=== PATIENT | female | born 1940 | race Caucasian/White ===

== ENCOUNTER → 2021-06-21 10:16 | Outpatient (CLI) | payer OTHER, SELFPAY ==
--- NOTE | 2021-06-21 10:20 | DI.RAD.S_ITS ---
PROCEDURE: XR HIP W PEL IF DONE JIE MIN 4V INDICATIONS: BILATERAL HIP PAIN TECHNIQUE: AP pelvis with lateral view(s) of the bilateral hip(s). COMPARISON: None. FINDINGS: Bones: No fractures or dislocations. Pelvic ring appears intact. No suspicious bony lesions. Moderate bilateral degenerative hip joint space narrowing is present. Periarticular osteophytes are present. No erosions. Soft tissues: The visualized bowel gas pattern is normal. No suspicious soft tissue calcifications. IMPRESSION: Osteoarthritis within the hips bilaterally. Dictated by: Jessica Gutierrez M.D. on 06/21/2021 at 17:26 Approved by: Jessica Gutierrez M.D. on 06/21/2021 at 17:27
== END ==
PROVIDERS: PCP Internal Medicine; Referring Provider Physical Medicine & Rehabilitation; Visit Provider Physical Medicine & Rehabilitation
DX: M25.551 Pain in right hip (principal); M25.552 Pain in left hip; M16.0 Bilateral primary osteoarthritis of hip
CPT/HCPCS: 73522

== ENCOUNTER 2022-12-26 11:39 | Inpatient (IN) | payer OTHER, SELFPAY ==
[2022-12-18 12:30] VITALS: BMI 30.8
[2022-12-26] VITALS (13 sets, daily range): BP systolic 133–190; BP diastolic 75–97; PULSE 72–84; RESP 12–93; TEMP 35.9–37.1; O2SAT 12–99; BMI 30.8
--- NOTE | 2022-12-26 | DI.RAD.S_ITS ---
PROCEDURE: XR LUMBAR SPINE 2-3V INDICATIONS: L4-5 TLIF TECHNIQUE: 2 intraoperative fluoroscopic views of the lumbar spine were acquired. COMPARISON: None. FINDINGS: Intraoperative fluoroscopic views during L4-5 posterior lumbar fusion and discectomy. The hardware appears intact. IMPRESSION: Intraoperative fluoroscopic views during L4-L5 TLIF. The hardware appears intact. Dictated by: Jesus Vanegas M.D. on 12/27/2022 at 8:39 Approved by: Jesus Vanegas M.D. on 12/27/2022 at 8:40
[2022-12-26] MEDS: LACTATED RINGERS 1,000 ML 42 ML IV ×2 (12:33→15:26)
[2022-12-26] MEDS: ACETAMINOPHEN 325 MG TABLET 975 MG PO (12:35)
[2022-12-26] MEDS: GABAPENTIN 300 MG CAPSULE PO (12:35)
--- NOTE | 2022-12-26 13:45 | PM.PREOP ---
Pre-operative Note Interval Note History & Physical reviewed/Exam performed by Physician: Yes Changes to H&P: No
[2022-12-26] MEDS: CEFAZOLIN 2 GM/100 ML PREMIX 100 ML IV ×2 (14:25→21:23)
--- NOTE | 2022-12-26 14:51 | SUR.OPER ---
Prone on spine table, head in foam head support, padded chest and pelvic supports, gel pad at knees, lower legs supported by pillows; nipples, genitalia and toes free of pressure, arms secured on foam padded arm boards at <90 degrees abduction. Tape over blanket at thigh secured to table.
[2022-12-26] MEDS: BUPIVACAINE LIPOSOME 266 MG/20 ML VIAL INJ (15:22)
[2022-12-26] MEDS: BUPIVACAINE 0.25% (PF) 60 ML, EPINEPHrine 0.15 MG INJ (15:22)
--- NOTE | 2022-12-26 16:53 | P.OP_ITS ---
Operative Date/Time/Diagnoses Date of procedure: 12/26/22 Time of procedure: 14:00 Pre-op diagnosis: 1. L4-5 spinal stenosis with neurogenic claudication 2. Lumbar scoliosis Post-op diagnosis: same Procedure & Clinicians Procedure: 1. L4-5 Postero-lateral and posterior interbody fusion 2. L4-5 interbody cage placement. 3. L4-5 decompressive laminectomy with bilateral facetecomies 4. L4-5 Posterior non-segmental instrumentation 5. [place] of bone marrow from iliac crest 6. Utilization of microsurgical technique and operating microscope Same procedure as scheduled: Yes Indications: Patient has been having chronic back pain and worsening lumbar radiculopathy and symptoms of neurogenic claudication. Patient failed multiple conservative management with worsening pain weakness and numbness in her lower extremity. She has difficulty standing for more than 5 minutes or walking more than 10 minutes. She will have progressive pain and w eakness in both legs as she walks and stands for a few minutes. Her symptoms are relieved with forward flexion and leaning on a shopping cart consistent with spinal stenosis and neurogenic claudication. Patient has been having difficulty performing activity of daily living. After discussing risks benefits of treatment options, patient elected proceed with surgery. Surgeon: Salazar Robertson Finisher Merchant Products: Lin Driver Click Yes if Unassisted: No Anesthesia Type: General Operative Notes Closure Type: primary Specimen(s): none sent Prosthetic devices, grafts, tissues, transplants, or devices: Globus revolve screws, Rise cage Estimated Blood Loss (mL): 50 Blood products transfused: none Procedure in detail: Patient was seen in the preoperative area. Risks and benefits of the surgery was discussed with the patient. Informed consent was obtained from the patient and placed in the chart. Surgical site was marked. Patient was taken to the operative room. General anesthesia was administered. Prophylactic antibiotic was given to the patient less than 30 min before the incision was made. Patient was placed into a prone position on the Lizandro table. Patient's back was then prepped and draped in the sterile fashion. Time-out was performed at this time. Using AP and lateral C-arm imaging the interval between L4-5 was identified and marked on patient's back. A 2 inch incision 2 in from midline was made on the left side first. The fascia was incised in line with skin incision. Globus MARS retractors was placed inside the incision and docked onto the L4 lamina. Using microsurgical technique and operating microscope, a L4 laminectomy and L4-5 facetectomy was performed using a [place] rongeur. The laminectomy and facetectomy was performed in order to decompress patient's cauda equina as well as the nerve roots exiting at the L4-5 level. The disc space at L4-5 was identified. And a total diskectomy was performed at L4-5 level. The endplates were decorticated using a rasp and shaver. The total diskectomy and decortication was performed at L4-5 level in order to to accomplish a L4-5 fusion. The local bone from the laminectomy and facetectomy was saved for local bone grafting. After the total diskectomy and decortication was completed, DBM bone graft material was combined with local bone that was harvested earlier. At this time, a separate skin is incision was made over the iliac crest. A Jamshidi needle was inserted into the iliac crest through a separate skin inc ision. 5 cc of bone marrow aspiration was obtained through the separate skin incision using a Jamshidi needle from the iliac crest. The bone marrow aspiration was combined with local bone and the DBM bone grafting material. The bone grafting material was placed into the L4-5 interbody space along with a expandable cage. The cage was expanded to its maximum height using the torque limiting screwdriver. At this time a mirror image incision was made on the right side. The fascia was incised in line with the skin incision. Globus MARS retractor was inserted and docked onto the L4-5 posterolateral gutter. Using the power drill, posterior- lateral decortication was performed at L4-5 level until bleeding cortical bone was identified. The remaining bone grafting material was placed into the L4-5 posterior lateral gutter he order to accomplish posterolateral fusion at the L4- 5 level. Using the double C-arm technique, pedicle screws were placed into the L4-5 pedicles bilaterally. This was done by placing the Jamshidi needle into the pedicles, then placing the guidewires over the Jamshidi needle, and finally placing the cannulated screws over the guidewires bilaterally. After the pedicle screws were placed, 2 titanium rods was locked into the heads of the pedicle screws using locking caps and torque limiting screwdriver. After all the hardware was placed, and confirmed with AP and lateral C-arm imaging, the wound was then irrigated with sterile normal saline and packed with Ray-Steevn gauze for 3 min to accomplish hemostasis. After the gauze was removed the deep fascia was closed with #1 Vicryl suture. The subcutaneous layer was closed with 2-0 Vicryl. The skin was closed with skin tre. Patient tolerated the procedure well. There were no complications. The Operation could not have been safely performed without compromising the technical result or length of the procedure, without the assistance of a skilled office clerk assistant. The office clerk assistant was medically necessary for proper positioning, retraction and manipulation of instruments, proper exposure, surgical preparation, and manipulation of tissue. Complications: none Post-operative Condition: stable Disposition: PACU Plan for aftercare: Admit to inpatient hospital
--- NOTE | 2022-12-26 17:34 | SUR.PHASEI ---
Pt transferred to room 220 by Rhett KUHN with 1 belongings bag and front wheeled walker.
--- NOTE | 2022-12-26 17:51 | PC.NURSE ---
Addendum entered by Oren Lovell R.N. 12/26/22 18:02: Reports back pain 0/10 at this time. Original Note: Day shift: In room from PACU at approx 1740. A&Ox4. BP elevated 189/90. Will continue to monitor BP. RA 96%. Purwik in place. CMS in tact and PPP. Oriented to room and call light. Daughter in room for post-op support . Daughter states that she will not be able to care for Pt at home as she has 3 young children. Call light in reach. Lungs clear. HR regular. BT's hypoactive.
[2022-12-26] MEDS: LACTATED RINGERS 1,000 ML 125 ML IV (17:59)
[2022-12-26] MEDS: OXYCODONE IR 5 MG TABLET PO (19:47)
[2022-12-26] MEDS: lisinopriL 20 MG TABLET PO (20:04)
[2022-12-26] MEDS: DOCUSATE 100 MG CAPSULE PO (20:05)
[2022-12-26] MEDS: VIT C/E/ZN/COPPR/LUTEIN/ZEAXAN CAPSULE 1 CAP PO (20:05)
[2022-12-26] MEDS: ATORVASTATIN 20 MG TABLET PO (20:05)
[2022-12-26] MEDS: SENNOSIDES 8.6 MG TABLET 17.2 MG PO (20:05)
[2022-12-26] MEDS: OXYBUTYNIN 5 MG TABLET PO (20:21)
[2022-12-27] VITALS: BP 147/55; PULSE 69; RESP 17; TEMP 36.2; O2SAT 93
[2022-12-27] MEDS: LACTATED RINGERS 1,000 ML 125 ML IV (01:59)
[2022-12-27 04:00] VITALS: BP 169/82; PULSE 65; RESP 17; TEMP 36.1; O2SAT 94
[2022-12-27] MEDS: CEFAZOLIN 2 GM/100 ML PREMIX 100 ML IV (06:05)
[2022-12-27] MEDS: ACETAMINOPHEN 325 MG TABLET 650 MG PO ×2 (06:29→14:39)
--- NOTE | 2022-12-27 07:47 | PM.PNPO.1 ---
Subjective Subjective Date Patient Seen: 12/27/22 Time Patient Seen: 07:47 Interval history: pain is mild. Denies fever or chills. No nausea or vomiting. Patient does live alone. Exam Vital Signs (past 8 hours): - 12/27/22 00:00 12/27/22 04:00 Temperature 97.2 F L 97.0 F L Pulse Rate 69 65 Respiratory Rate 17 17 Blood Pressure 147/55 H 169/82 H Pulse Oximetry 93 94 Oxygen Flow Rate 0 0 Oxygen Delivery Method Room Air Oxygen Flow Rate 0 Narrative Exam Narrative: 82-year-old female resting comfortably in bed no apparent distress. Motor functions intact bilateral lower extremities. Sensation grossly intact to light touch bilateral lower extremities. Const General: cooperative and comfortable Nutritional Appearance: average body habitus Chest Chest: normal inspection of the chest and normal palpation of entire chest wall PFSH Medical History Anxiety Lumbar radiculopathy Spinal stenosis Diverticulosis HLD (hyperlipidemia) HTN (hypertension) Gait instability History of CVA (cerebrovascular accident) (~2014) Degenerative joint disease of both hips Surgical History Hx of bilateral cataract extraction History of left-sided carotid endarterectomy (~2014) Hx of appendectomy History of hernia surgery Family History Mother Heart disease Past heart attack Social History household members: none Smoking Status: Never smoker alcohol intake: never Assessment & Plan Post-op Postoperative Procedures: Procedures Operation Date: 12/26/22 13:15 Actual Procedure Side Surgeon p L4-5 TLIF Salazar Robertson MD Postoperative day: 1 Postoperative status: doing well Postoperative status narrative: Stable status post L4-L5 fusion Postoperative plan: routine post-op care Postoperative plan narrative: mobilize with physical therapy, limit bending, twisting, lifting multimodal pain management disposition, home versus residential facility to be determined Quality VTE Deep Vein Thrombosis/Pulmonary Embolism Present on Admission: No
[2022-12-27 08:00] VITALS: BP 181/96; PULSE 71; RESP 16; TEMP 36.3; O2SAT 99
[2022-12-27] MEDS: OXYBUTYNIN 5 MG TABLET 10 MG PO (09:10)
[2022-12-27] MEDS: FENOFIBRATE, MICRONIZED 67 MG CAPSULE 134 MG PO (09:10)
[2022-12-27] MEDS: DOCUSATE 100 MG CAPSULE PO ×2 (09:10→20:28)
[2022-12-27] MEDS: OXYCODONE IR 5 MG TABLET PO ×3 (10:49→20:28)
--- NOTE | 2022-12-27 11:03 | PT.IIE ---
Current Diagnoses Spinal stenosis, lumbar region with neurogenic claudication (12/26/22) Surgery Performed Operation Date: 12/26/22 13:15 Actual Procedures p L4-5 TLIF - Salazar Robertson MD Surgical History (Last Reviewed 12/27/22 @ 07:48 by Filipe Burgos PA-C) History of hernia surgery History of left-sided carotid endarterectomy (~2014) Hx of appendectomy Hx of bilateral cataract extraction Medical History (Last Reviewed 12/27/22 @ 07:48 by Filipe Burgos PA-C) Anxiety Degenerative joint disease of both hips Diverticulosis Gait instability History of CVA (cerebrovascular accident) (~2014) HLD (hyperlipidemia) HTN (hypertension) Lumbar radiculopathy Spinal stenosis Physical Therapy Inpatient Evaluation/Re-Eval M1 PT/OT-IP Prior Functional Status Start: 12/27/22 11:44 Freq: NEEDED Status: Active Protocol: Document 12/27/22 11:44 AB (Rec: 12/27/22 12:40 AB [id number]) Medical Review Prior Functional Status Medical History Reviewed Yes Diet/Fluid Consistency Regular Communication Pt is able to express all needs. Mobility and Gait Pt reports she uses 4WW when ambulating for household and community distances. Activities of Daily Living and IADL's Pt is IND with ADLs and IADLs. Social History Household Members none Living Arrangements Apartment/Condo Number of Floors (Floors) One Floor Number of Stairs To Enter/Railing? ramp to enter Home Environment High Toilet,Tub/Shower,Ramp Home Equipment Four Wheel Walker,Long Handled Shoe Horn,Crane Ladle Person,Grab Bars Near Toilet,Grab Bars In Shower Additional Social History Comment Pt lives alone and does not have anyone who can assist her ; her daughter lives 45 min away. M2 PT-IP Current Condition Start: 12/27/22 11:44 Freq: NEEDED Status: Active Protocol: Document 12/27/22 11:44 AB (Rec: 12/27/22 12:40 AB [id number]) Physical Therapy Current Condition Current Condition Evaluation Date 12/27/22 Treatment Diagnosis s/p lumbar TLIF L4-L5 Onset Date 12/26/22 M3 PT-IP Subjective Start: 12/27/22 11:44 Freq: NEEDED Status: Active Protocol: Document 12/27/22 11:44 AB (Rec: 12/27/22 12:40 AB [id number]) Subjective Physical Therapy Visit Type Type Initial Evaluation Visit Start Time 10:11 Visit Stop Time 11:03 Total Visit Minutes 52 Notes PT and OT eval performed concurrently. Physical Therapy Visit Comments Patient Comments Pt presents semi supine in bed with daughter present, and is agreeable to eval. Therapy Pain Assessment Pain When Pain Assessed At Rest Pain Present Pain Present Pain Reported Location low back Intensity 2 Pain Management Techniques Distraction,Timing of Activity with Medications M4 PT-IP Mobility and Gait Start: 12/27/22 11:44 Freq: NEEDED Status: Active Protocol: Document 12/27/22 11:44 AB (Rec: 12/27/22 12:40 AB [id number]) PT-Bed Mobility Assessment Rolling Type of Rolling Log Rolling Level of Assist Standby Assistance Supine to Sit Supine to Sit Standby Assistance,Bedrails Sit to Supine Sit to Supine Standby Assistance,Bedrails Scooting Scooting to Edge of Bed Standby Assistance PT-Transfer Assessment Sit to and From Stand Sit to and from Stand Standby Assistance,Use of Upper Extremities Equipment Transfer Assistive Device Gait Belt,Front Wheeled Walker Transfers Transfer Destination Bed,Chair,Toilet Transfer Technique ambulated Transfer Ability Level of Assist Standby Assistance,Use of Upper Extremities Comments Mobility Comments After introduction, education and subjective history, the pt was positioned supine in bed to perform log roll. She was able to perform log roll with SBA, requiring cues for proper hand placement, though the pt opted to use bed rail to push up to sitting despite PT cues to push from bed. Once seated , the pt is able to scoot forward with SBA using UEs. The pt then performed STS with UEs, FWW and SBA, with PT educating on pushing up from bed rather than on FWW. The pt 's BP with mobility remained stable at 172/77, 176/87 and 179/93, though is high, in supine sitting and standing respectively. Once standing, the pt ambulated ~15ft in room with FWW and SBA, then transfers to toilet to void with assist from OT. Once hand hyigene is performed, the pt ambulated 200ft with FWW and SBA/CGA. She demonstrates narrow JEFF and poor compliance with precautions, as she turns to talk to PT, and has poor carryover to widen JEFF when ambulating. The pt also shows heavy use of UEs on FWW for stability, stating she doesn't trust her LLE due to weakness. Upon returning to room, the pt performs log roll to return to supine with SBA and use of bed rails. Then performs log roll to sit at EOB, and transfers to chair with FWW and SBA to continue with OT eval. Pt is left with OT to continue OT eval. Gait Assessment Gait Gait Assistance Required: Standby Assistance,Contact Guard Assist Distance (Feet) 200 Assistive Devices Assistive Device Gait Belt,Front Wheeled Walker Gait Deviations General Gait Pattern Decreased Stride Length, Decreased Feet Clearance, Narrow Based Gait Factors Limiting Gait Function Factors Limiting Gait Function Decreased Activity Tolerance, Decreased Sensation,Decreased Strength,Difficulty Following Directions,Limited Range of Motion,Pain,Poor Balance,Poor Safety Awareness Comments Gait Comments See mobility comments. Stair Climbing Assessment Comments Stair Climbing Comments Not assessed; pt does not have stairs at home. PT-Balance Assessment Sitting Balance and Reactions Static Sitting Balance Ability Good Dynamic Sitting Balance Ability Good Standing Balance and Reactions Static Standing Balance Ability Good Dynamic Standing Balance Ability Fair Device Used FWW M5 PT-IP Objective Assessments Start: 12/27/22 11:44 Freq: NEEDED Status: Active Protocol: Document 12/27/22 11:44 AB (Rec: 12/27/22 12:40 AB [id number]) Orientation Orientation/Cognition Level of Alertness Alert Orientation Name,Age,Birthday,Month,Date, Year,Day of Week,Place, Situation Language Function Ability No Deficits Noted Safety Awareness Decreased Safety Awareness Comments Possible short term deficits noted, as she has poor recall of education. Gross Range of Motion Upper Extremity ROM Assessment Within Functional Limits Lower Extremity ROM Assessment Within Functional Limits Strength Upper Extremity Strength Assessment Within Functional Limits Lower Extremity Strength Assessment Within Functional Limits M6 PT-IP Treatment Start: 12/27/22 11:44 Freq: NEEDED Status: Active Protocol: Document 12/27/22 11:44 AB (Rec: 12/27/22 12:40 AB [id number]) Physical Therapy Treatment Education Education Provided Precautions,Weight Bearing Status,Post-Op Packet,Safety Brace Education Patient M7 PT-IP Assessment and Plan Start: 12/27/22 11:44 Freq: NEEDED Status: Active Protocol: Document 12/27/22 11:44 AB (Rec: 12/27/22 12:40 AB [id number]) PT Summary Assessment and Plan Potential Rehabilitation Potential Good Status of Condition at Evaluation Stable Summary Impairments Pain,ROM,Strength,Balance, Cognition,Bed Mobility, Transfers,Gait,Activity Tolerance Assessment Summary Kelli Reynolds is an 82 year old female patient who is s/p lumbar TLIF L4-L5 performed on 12/26/22. The pt demonstrates she is able to perform functional mobility with SBA, including log roll/bed mobility (with bed rails), STS , transfers and ambulation. However, the pt requires constant cueing for safety and sequencing throughout, as she demonstrates poor recall and has to be redirected to the task at hand. The pt ambulates with heavy use of UEs on FWW and narrow JEFF, which can increase her risk for falls. Based on her current level of function but safety concerns, PT currently recommends discharge to SNF to improve her level of function and decrease her fall risk, as the pt does not have assistance at home to assist her and to ensure the pt is safe. Discharge disposition is subject to change based on progress. The pt would benefit from skilled PT to improve these deficits. Goals Bed Mobility Goal Independent Transfer Goal Independent,Front Wheeled Walker,Four Wheeled Walker Gait Goal Independent,Front Wheel Walker ,Four Wheel Walker Gait Distance 500 Other Goals Pt to ambulate 500ft independently with LRAD to show improving tolerance to activity. Pt to recall and maintain 3/3 spinal precautions with functional mobility to show improving safety awareness. Days to Meet Goals 5 Frequency of Treatment Frequency Of Treatment Twice a Day Treatment Plan Physical Therapy Treatment Plan Bed Mobility Training,Transfer Training,Gait Training, Therapeutic Exercise,Balance Retraining,Post Op Education, Discharge Planning,Hot or Cold Pack,Neuromuscular Re-ed, Coordination Retraining,Manual Therapy Precautions Lumbar Precautions Log Roll,No Twisting,Limit Bending,Lifting Restriction of 10 lbs,Gait Belt above Incisional Area Weight Bearing Status Weight Bearing Status Weight Bear as Tolerated Recommendations To Nursing Amount of Assist Needed Standby Assistance,1 Person Assist Discharge Recommendations PT Discharge Recommendations SNF Rehab Transportation Needs at Discharge Private Vehicle,Wheelchair/ Cabulance
--- NOTE | 2022-12-27 11:20 | OT.IP.EVAL ---
Current Diagnoses Spinal stenosis, lumbar region with neurogenic claudication (12/26/22) Surgery Performed Operation Date: 12/26/22 13:15 Actual Procedures p L4-5 TLIF - Salazar Robertson MD Past Medical History (Last Reviewed 12/27/22 @ 07:48 by Filipe Burgos PA-C) Anxiety Degenerative joint disease of both hips Diverticulosis Gait instability History of CVA (cerebrovascular accident) (~2014) HLD (hyperlipidemia) HTN (hypertension) Lumbar radiculopathy Spinal stenosis Surgical History (Last Reviewed 12/27/22 @ 07:48 by Filipe Burgos PA-C) History of hernia surgery History of left-sided carotid endarterectomy (~2014) Hx of appendectomy Hx of bilateral cataract extraction Occupational Therapy Inpatient Evaluation/Re-Eval M1 PT/OT-IP Prior Functional Status Start: 12/27/22 11:44 Freq: NEEDED Status: Active Protocol: Document 12/27/22 11:44 AB (Rec: 12/27/22 12:40 AB [id number]) Medical Review Prior Functional Status Medical History Reviewed Yes Diet/Fluid Consistency Regular Communication Pt is able to express all needs. Mobility and Gait Pt reports she uses 4WW when ambulating for household and community distances. Activities of Daily Living and IADL's Pt is IND with ADLs and IADLs. Social History Household Members none Living Arrangements Apartment/Condo Number of Floors (Floors) One Floor Number of Stairs To Enter/Railing? ramp to enter Home Environment High Toilet,Tub/Shower,Ramp Home Equipment Four Wheel Walker,Long Handled Shoe Horn,Floor Covering Layer,Grab Bars Near Toilet,Grab Bars In Shower Additional Social History Comment Pt lives alone and does not have anyone who can assist her ; her daughter lives 45 min away. M1 PT/OT-IP Prior Functional Status Start: 12/27/22 13:03 Freq: NEEDED Status: Active Protocol: Document 12/27/22 10:10 [facility] (Rec: 12/27/22 13:31 [facility] [id number]) Medical Review Prior Functional Status Medical History Reviewed Yes Diet/Fluid Consistency Regular Communication Pt is able to express all needs. Mobility and Gait Pt reports she uses 4WW when ambulating for household and community distances. Activities of Daily Living and IADL's Pt is IND with ADLs and IADLs. Pt states still drives. Prior Functional Level (Other details) Pt states has to get up to use the bathroom every hour during the night . Pt states has to walk over 1000 ft in order to do her laundry. Pt's daughter lives 45 minutes away . Social History Household Members none Living Arrangements Apartment/Condo Number of Floors (Floors) One Floor Number of Stairs To Enter/Railing? ramp to enter Home Environment High Toilet,Tub/Shower,Ramp Home Equipment Four Wheel Walker,Long Handled Shoe Horn,Floor Covering Layer,Grab Bars Near Toilet,Grab Bars In Shower Additional Social History Comment Pt lives alone and does not have anyone who can assist her ; her daughter lives 45 min away. M2 OT-IP Current Condition Start: 12/27/22 13:03 Freq: Status: Active Protocol: Document 12/27/22 10:10 [facility] (Rec: 12/27/22 13:31 [facility] [id number]) Occupational Therapy Current Condition Current Condition Evaluation Date 12/27/22 Treatment Diagnosis S/P L4-5 TLIF Diagnosis Onset Date 12/26/22 Post Operative Precautions Lumbar Precautions Log Roll,No Twisting,Limit Bending,Lifting Restriction of 10 lbs,Gait Belt above Incisional Area M3 OT- IP Subjective and Pain Start: 12/27/22 13:03 Freq: Status: Active Protocol: Document 12/27/22 10:10 [facility] (Rec: 12/27/22 13:31 [facility] [id number]) OT- Subjective Occupational Therapy Visit Type Type Initial Evaluation Visit Start Time 10:10 Visit Stop Time 11:20 Total Visit Minutes 70 Occupational Therapy Visit Comments Patient Comments Pt agreed to get up and is very talkative. Pt also present for therapy eval. Patient/Caregiver Goals TO get better. OT Pain Assessment Pain When Pain Assessed At Rest Pain Present Pain Present Pain Reported Location low back Intensity 4 Scale Used Numeric (0 - 10) M4 OT- IP ADL's Start: 12/27/22 13:03 Freq: Status: Active Protocol: Document 12/27/22 10:10 [facility] (Rec: 12/27/22 13:31 [facility] [id number]) OT VYW-Xpca-Hulciko General Evaluation Self-Feeding Ability Independent OT ADL-Grooming Comments OT Grooming Comments Not performed. OT ADL-Oral Care General Eval Oral Care Ability Independent Areas of Assistance Retrieving/Set-Up of Items Comments Oral Care Comments Educated best to spit into a cup versus hinge at her hips in order to spit into the sink . OT ADL-Dressing General Eval Lower Body Dressing Ability Minimal Assistance Comments OT Dressing Comments Pt having difficulty to reach her left foot. Pt states she is usually barefooted. OT ADL-Toileting General Evaluation Toileting Ability Minimal Assistance Comments OT Toileting Comments Pt needing assist to help el the brief over her feet. Pt educated not to wipe from back to front to prevent from getting infections and to stand to wipe. Pt states gets up every 1-2 hours at night to use the bathroom. OT ADL-Bathing Comments OT Bathing Comments Not performed. M5 OT- IP IADL's Start: 12/27/22 13:03 Freq: Status: Active Protocol: Document 12/27/22 10:10 [facility] (Rec: 12/27/22 13:31 [facility] [id number]) OT-Instrumental Activities of Daily Living Deficits IADL Deficits Identified Deficits Home Safety Awareness Ability to Problem Solve Emergency Able to Problem Solve Situations Medication Management Medication Management Comments Pt states uses a pill box. Money Management Money Management Comments Pt states writes checks and does automatic payment. Meal Preparation Meal Preparation Comments Pt will benefit from assist at this time Film Reader Film Reader Comments Pt will benefit from assist. Driving Driving Concerns Identified Regarding Safety M6 OT- IP Functional Cognition Start: 12/27/22 13:03 Freq: Status: Active Protocol: Document 12/27/22 10:10 [facility] (Rec: 12/27/22 13:31 [facility] [id number]) Cognitive Factors Limiting Selfcare Function Cognitive Ability Level of Alertness Alert Patient Orientation Name,Place,Situation Attention Span Ability Capable of Focused Attention, Capable of Sustained Attention Ability to Follow Commands Able to Follow One Step Commands Safety Awareness Decreased Recall of Precautions,Decreased Ability to Apply Precautions, Underestimates Need for Assistance Cognitive Comments Cognitive Assessment Comments Pt highly distracted, talkative, and needing cues to stay on task. Pt not able to recall her precautions and needing cues to incorporate her back precautions fro ADL and mobility needs. OT- Vision and Hearing OT- Hearing Assessment OT- Hearing Assessment WFL OT- Vision Assessment Vision History Macular Degeneration Visual Acuity Glasses All The Time Vision Assessment Comments Pt states vision is foggy on her right side with her right eye. M7 OT- IP Mobility and Balance Start: 12/27/22 13:03 Freq: Status: Active Protocol: Document 12/27/22 10:10 [facility] (Rec: 12/27/22 13:31 [facility] [id number]) OT- Bed Mobility Assessment Supine to Sit Supine to Sit Assist Standby Assistance Sit to Supine Sit to Supine Assist Standby Assistance Scooting Scooting to Edge of Bed Standby Assistance OT-Transfer Assessment Sit to and From Stand Sit to and from Stand Standby Assistance,Minimal Assistance Transfers Transfer Ability Standby Assistance,Contact Guard Assistance Technique Transfer Destination Bed,Chair,Toilet Transfer Technique Stand Step Pivot Devices Transfer Assistive Devices Gait Belt,Front Wheeled Walker Comments Mobility Comments Pt needing to use the bed rail to get to the edge of the bed . Pt does not have bed rail to use at home. Pt states she tends to grab her 4ww in order to assist her to get up. CGA/ SBA with FWW and very heavy handed on the armrests of the FWW when up on her feet. In addition pt tend to have her feet very close together and at times almost crosses over. OT- Balance Assessment Sitting Balance and Reactions Static Sitting Balance Ability Good Dynamic Sitting Balance Ability Good Standing Balance and Reactions Static Standing Balance Ability Fair Dynamic Standing Balance Ability Poor M9 OT- IP Assessment and Plan Start: 12/27/22 13:03 Freq: Status: Active Protocol: Document 12/27/22 10:10 [facility] (Rec: 12/27/22 13:31 [facility] [id number]) OT Summary Assessment and Plan Potential Rehabilitation Potential Good Analytic Complexity at Evaluation Low Summary OT Impairments Pain,Strength,Balance, Functional Cognition, Functional Mobility,Grooming, Dressing,Toileting,Bathing, Toilet Transfers,Shower Transfers,Activity Tolerance Progress Towards Goals Progressing Toward Goals Assessment Summary Pt low complexity and main barriers are pain, decreased activity tolerance, and needing reminders to incorporate her back precautions, needing assist for LB dressing needs. Pt is a high fall risk as a bit insistent on her care, but easily redirected. Pt needing use of FWW now as she heavily relies on her arms on the armrest of the FWW. Pt would greatly benefit from short rehab stay to continue to go over her back precautions and incorporate them in her ADL and mobility needs. Pt is a high fall risk as at night pt frequent nocturia. Pt to go to skilled rehab when medically stable. Goals Grooming Goal Independent Dressing Goal Independent Toileting Goal Independent Bathing Goal Independent Toilet Transfer Goal Independent Shower Transfer Goal Independent Days to Meet Goals 10 Frequency of Treatment Frequency Of Treatment Once a Day Treatment Plan OT Treatment Plan ADL Training,Functional Cognition Training,Functional Mobility,Patient/Family Education,Discharge Planning Discharge Recommendations OT Discharge Recommendations SNF Rehab Transportation Needs at Discharge Wheelchair/Cabulance
[2022-12-27] MEDS: HYDROMORPHONE 0.5 MG INJ IV (14:39)
--- NOTE | 2022-12-27 15:22 | CM.DANOTE ---
Reviewed EMR and team rounds for pt's medical status and anticipated d/c needs. Met with pt and dtr at bedside to introduce self and role. Pt/family and Ortho have already identified the need for her to d/c to SNF rehab once medically stable. Payor: Arben Anderson. Attending: Dr. Robertson Pt is a 82 year-old F admitted following her TLIF lumber fusion surgery. She has a hx of progressive, worsining lower back pain, bilateral leg weakness, and poor balance. She has also had 2-strokes in the past. Her dtr, Mary, will not be able to care for pt post-inpt d/c due to having 3-small children herself. Plan is for pt to continue to mobilize with PT/OT, her first preference is [facility], second choice is [facility]. Clinicals sent to both facilities to review. [facility] may not have a bed until next week, but [facility] can accept, pending [employer] authorization. Will need to f/u on which place will have a bed available once auth is obtained. Cont. to follow closely, dtr is primary contact for care coordination. Discharge Planning/Care Management CM Discharge Assessment Start: 12/27/22 15:17 Freq: Status: Active Protocol: Document 12/27/22 15:17 DPL (Rec: 12/27/22 15:22 [facility] [id number]) Discharge Planning Assessment Assigned Equipment Maintenance Tech TU Li Advance Directives? Yes Advance Directives on File No History Provided By Patient,Family Member,Medical Record Has Patient been admitted in last 30 No days? Prior Living Arrangements Apartment/Condo Household Members none Comment Dtr lives in [place], is very involved and is the primary contact for care coordination. Type of transporation used prior to Drives own vehicle admit Independent with ADL's Yes Is patient alert and oriented? Yes Caregiver for Another No Comment N/A DME Already Rented / Owned FWW / Walker Patient/Family Preference [facility] Facility Barriers to Discharge No Discharge Plan [facility] Facility Referrals Initiated [facility] If patient plan is SNF: Has PASSR been Yes completed? Inpatient Status as of 12/26/22 Medicare Choice List Provided Yes Medicare choice list reviewed on patient,family electronic tablet with SNF/HH Preference [facility] is first preference, second is [facility] Has Agency SNF been contacted Yes Whiteboard Updated in Patient Room with Yes name and ext. # of Equipment Maintenance Tech Review Status In Process Please Provide Date Initial DC 12/27/22 Assessment Was Performed Pre-Anesthesia Assessment Start: 12/18/22 12:30 Freq: Status: Complete Protocol: Document 12/18/22 12:30 [facility] (Rec: 12/18/22 13:37 [facility] [id number]) Pre-Anesthesia Assessment Patient Information Reviewed Via Phone Assessment Assessment Completed With Patient Diagnostic Results BMP/CMP,CBC,EKG Comment Outside labs/EKG scanned Primary Care Provider Mary Rojas Comment PCP pre-op 11/08/22, clearance form 10/23/22 scanned Seen Specialist in Last 12 Months Yes Specialist Seen Orthopedist Primary Language [place] Sediment Remediation Consultant Required No Height 152.4 cm Weight 71.668 kg Body Mass Index (BMI) 30.8 Hearing Ability Normal Visual Assist Glasses Dentition Type Teeth, Natural Present Barriers to Learning Visual Hx Anesthesia Reactions No Hx Family Anesthesia Reaction No Hx Malignant Hyperthermia No Hx Blood Transfusions No Anesthesia Review Requested No [place] No alcohol intake never Smoking Status Never smoker Substance Use Type does not use Pain Present Pain Reported Musculoskeletal Symptoms Abnormal Gait,Back Pain, Difficulty Walking History of Falling (Recent or History of Yes ) Patient is completely paralyzed or No completely immobile Prosthesis or Orthotic Device Front Wheel Walker Mental Status Oriented to own ability Is patient on oxygen? No Does patient have MORRELL/SOB No Hx Sleep Apnea No Currently Taking a Beta Jayshree No Hx Chest Pain No Hx SOB No Hx Syncope or Dizziness No Anti-Coagulant Therapy Yes: Plavix-pt advised to hold 1 week prior per Surgeon office Has a Stone And Concrete Washer No Cardiac Testing No Hx Pacemaker/ICD No Pacemaker Rep Required? No Cardiac Clearance Received No Comment Pt is very active, swims regularly Diet Type At Home Regular Dysphagia No Gastrointestinal Symptoms Reflux Bladder Pattern Frequency,Nocturia Urinary Catheter Present No Hx Urinary Self Catheterization No Diabetes No Patient No Lactating No Hx Drug Resistant Organism No Presence of External or Internal Medical Yes: Bilat eye IOLs Devices Received a COVID vaccine? Yes Received all doses? Yes Marital Status Lives With none Current Living Arrangements Apartment/Condo Number of Floors (Floors) One Floor Support System Child/Children Does the Patient Have Assistance After No: Pt does not have any Surgery assistance for care at home Patient Discharge Plan Description [facility] Facility/Rehab Comment Pt advised she will be DC'd to a SNF per surgeon Feels Safe in Current Environment Yes Been Physically Hurt or Threatened By a No Person in Current Environment Do you have thoughts of harming yourself None or others? Are you currently considering suicide? No Do you have a plan to hurt yourself or No Plan others? Do You Have Any Spiritual Beliefs That No May Affect Your HC Choices? Do You Have Any Cultural Practices That No May Affect Your HC Choices? Comment Christianity Who Can We Speak to About Patient's Care Family, friends Identifying Code for Release of Patient Declines to issue Information Health Care Proxy/Next of Kin Mary (daughter) Health Care Proxy Emergency Contact Name Mary (daughter) Emergency Contact Advance Directives? Yes Advance Directives on File No Requested Patient Bring Advanced Yes Directives DOS Power of [place] Clerk Yes Power of [place] Clerk Name Mary (justin) Power of [place] Clerk PAC Instructions Durable medical equipment, Medications to take/avoid, Nasal antibiotic,No ETOH/ petroleum product on skin DOS, NPO,Pre-surgical wash,Sensory aids,Sturdy shoes/comfortable clothes,Do not bring valuables and remove jewelry
--- NOTE | 2022-12-27 16:42 | PT-IP ANOTE ---
The pt refused PT treatment, as she reports being too tired to participate in afternoon PT session, and feels like she may have over done it this morning, and that her pain has been worse this afternoon. PT will follow up tomorrow.
[2022-12-27 20:00] VITALS: BP 151/61; PULSE 79; RESP 18; TEMP 36.4; O2SAT 98
[2022-12-27 20:26] VITALS: BP 151/61; PULSE 79
[2022-12-27] MEDS: lisinopriL 20 MG TABLET PO (20:26)
[2022-12-27] MEDS: SENNOSIDES 8.6 MG TABLET 17.2 MG PO (20:28)
[2022-12-27] MEDS: OXYBUTYNIN 5 MG TABLET PO (20:28)
[2022-12-27] MEDS: VIT C/E/ZN/COPPR/LUTEIN/ZEAXAN CAPSULE 1 CAP PO (20:28)
[2022-12-27] MEDS: ATORVASTATIN 20 MG TABLET PO (20:28)
[2022-12-27 23:00] VITALS: BP 144/55; PULSE 75; RESP 16; TEMP 36.2; O2SAT 97
[2022-12-28] MEDS: OXYCODONE IR 5 MG TABLET PO ×4 (00:10→20:30)
[2022-12-28] MEDS: HYDROMORPHONE 0.5 MG INJ IV (04:57)
[2022-12-28] MEDS: ACETAMINOPHEN 325 MG TABLET 650 MG PO ×3 (04:58→18:03)
--- NOTE | 2022-12-28 07:00 | PM.DS.1 ---
History of Present Illness History of Present Illness Date Patient Seen: 12/28/22 Time Patient Seen: 07:00 Chief complaint: Translaminar Interbody Fusion/Laminotomy 12/26 Narrative: Operative Date/Time/Diagnoses Date of procedure: 12/26/22 Time of procedure: 14:00 Pre-op diagnosis: 1. L4-5 spinal stenosis with neurogenic claudication 2. Lumbar scoliosis Post-op diagnosis: same Procedure & Clinicians Procedure: 1. L4-5 Postero-lateral and posterior interbody fusion 2. L4-5 interbody cage placement. 3. L4-5 decompressive laminectomy with bilateral facetecomies 4. L4-5 Posterior non-segmental instrumentation 5. [place] of bone marrow from iliac crest 6. Utilization of microsurgical technique and operating microscope Same procedure as scheduled: Yes Indications: Patient has been having chronic back pain and worsening lumbar radiculopathy and symptoms of neurogenic claudication. Patient failed multiple conservative management with worsening pain weakness and numbness in her lower extremity. She has difficulty standing for more than 5 minutes or walking more than 10 minutes. She will have progressive pain and weakness in both legs as she walks and stands for a few minutes. Her symptoms are relieved with forward flexion and leaning on a shopping cart consistent with spinal stenosis and neurogenic claudication. Patient has been having difficulty performing activity of daily living. After discussing risks benefits of treatment options, patient elected proceed with surgery. Surgeon: Salazar Robertson Director Intelligence Analysis Programs: Lin Driver Click Yes if Unassisted: No Anesthesia Type: General Operative Notes Closure Type: primary Specimen(s): none sent Prosthetic devices, grafts, tissues, transplants, or devices: Globus revolve screws, Rise cage Estimated Blood Loss (mL): 50 Blood products transfused: none Discharge Providers Provider Date of admission: 12/26/22 11:39 Discharge Date: 12/29/22 Primary care physician: Mary Rojas MD Consults: 12/26/22 17:33 Consult to Occupational Therapy Evaluate & Treat Comment: Physician Instructions: Evaluate and treat Consult to Physical Therapy Evaluate & Treat Comment: Physician Instructions: Evaluate and Treat Discharge provider: Lin Driver PA-C Summary Hospital Course Discharge Diagnosis: L4-5 spinal stenosis with neurogenic claudication, Lumbar scoliosis; s/p lumbar fusion Hospital Course: Ms Reynolds's hospital course was remarkable for slow progress w/ PT. Both pt and her daughter agreed that d/c to SNF after her hospital stay would be appropriate. On the morning of POD# 2, she was feeling well but felt she needed another day of inpt PT prior to discharge; in review of PT notes, I agree. She was eating and voiding without difficulty and her pain was controlled with oral medication. H/o stroke; clopidogrel restarted POD# 2. Exam Vital Signs (past 8 hours): Oxygen Delivery Method Room Air Oxygen Flow Rate 0 Narrative Exam Narrative: 5/5 strength in hip flexors, quadriceps, hamstrings, DF, PF, EHL bilaterally. Sensation to light touch intact throughout BLE. Calves soft, compressible, nontender. Dressing changed since surgery and is CDI. [facility] Medical History Anxiety Lumbar radiculopathy Spinal stenosis Diverticulosis HLD (hyperlipidemia) HTN (hypertension) Gait instability History of CVA (cerebrovascular accident) (~2014) Degenerative joint disease of both hips Surgical History Hx of bilateral cataract extraction History of left-sided carotid endarterectomy (~2014) Hx of appendectomy History of hernia surgery Family History Mother Heart disease Past heart attack Social History household members: none Smoking Status: Never smoker alcohol intake: never Discharge Assessment & Plan Assessment and Plan Assessment: L4-5 spinal stenosis with neurogenic claudication, Lumbar scoliosis; s/p lumbar fusion Plan of Treatment: Continue work w/ PT today, likely d/c to SNF tomorrow pending acceptance/insurance auth. Multimodal pain control, f/u in office in 2 weeks as scheduled. Discharge Plan Discharge Plan Patient Disposition: SNF Discharge orders & Medications Prescriptions: New acetaminophen 325 mg Tablet 650 mg PO Q6H PRN (Reason: Fever/Mild Pain (1-3)) Qty: 240 0RF docusate sodium 100 mg Capsule 100 mg PO BID PRN (Reason: constipation) Qty: 60 1RF hydroxyzine pamoate 25 mg Capsule 25 mg PO Q4-6H Qty: 60 0RF oxycodone 5 mg Tablet 5 mg PO Q4-6H PRN (Reason: Pain, Moderate (4-6)) Qty: 60 0RF Continued lisinopril 20 mg Tablet 20 mg PO BEDTIME PreserVision AREDS-2 250-90-40-1 mg Capsule 1 tab PO BID oxybutynin chloride 5 mg tablet 5 mg PO SEEINSTR Rx Instructions: 10mg qam, 5mg qbedtime fenofibrate 160 mg tablet 160 mg PO DAILY simvastatin 40 mg tablet 40 mg PO BEDTIME clopidogrel 75 mg tablet 75 mg PO DAILY Follow up/Referrals: Salazar Robertson MD [Physician] - As previously scheduled (Follow up with Dr Robertson on 01/15/2023 @ 1:20 pm at [facility] office in [place].) Mary Rojas MD [Primary Care Provider] - Diet/Activity/Treatments Diet: Diet as Tolerated Activity: No deep bending or twisting at the waist. No lifting more than 10 pounds. Cold/Heat Therapy: Heating pad to low back as needed for pain. Skin/Wound/Dressing Care Report to your healthcare provider any signs of infection, such as:: chills, fever, night sweats, unusual drainage and unusual redness Dressing: May shower; keep dressing as dry as possible. If dressing becomes wet or dirty, may remove and replace with clean, dry gauze. No bathing or otherwise soaking incisions. Do not apply any creams, lotions, or ointments to incisions. Special Rehabilitation Services Reason for rehabilitation: Post-operative therapy Rehab type: Physical therapy and Occupational therapy Visit Report/Discharge Packet Instructions: DI for Prescription Opioid Use, DI for Transforaminal Lumbar Interbody Fusion Stand Alone Forms: Patient Portal/API, Surgery Discharge Discharge Data Primary Care Provider: Mary Rojas Quality VTE Deep Vein Thrombosis/Pulmonary Embolism Present on Admission: No
[2022-12-28 07:47] VITALS: BP 128/59; PULSE 87; RESP 16; TEMP 36.8; O2SAT 95
[2022-12-28] MEDS: hydrOXYzine pamoate 25 MG CAPSULE PO (08:59)
[2022-12-28] MEDS: FENOFIBRATE, MICRONIZED 67 MG CAPSULE 134 MG PO (09:06)
[2022-12-28] MEDS: VIT C/E/ZN/COPPR/LUTEIN/ZEAXAN CAPSULE 1 CAP PO ×2 (09:06→20:25)
[2022-12-28] MEDS: CLOPIDOGREL 75 MG TABLET PO (09:07)
[2022-12-28] MEDS: OXYBUTYNIN 5 MG TABLET 10 MG PO (09:07)
[2022-12-28] MEDS: DOCUSATE 100 MG CAPSULE PO ×2 (09:07→20:25)
[2022-12-28] MEDS: polyethylene glycoL 3350 17 GM POWD.PACK PO (09:09)
--- NOTE | 2022-12-28 11:25 | PT.IPTN ---
Current Diagnoses Spinal stenosis, lumbar region with neurogenic claudication (12/26/22) Arthrodesis status (12/26/22) Surgery Performed Operation Date: 12/26/22 13:15 Actual Procedures p L4-5 TLIF - Salazar Robertson MD Physical Therapy Treatment Note M2 PT-IP Current Condition Start: 12/27/22 11:44 Freq: NEEDED Status: Active Protocol: Document 12/27/22 11:44 AB (Rec: 12/27/22 12:40 AB [id number]) Physical Therapy Current Condition Current Condition Evaluation Date 12/27/22 Treatment Diagnosis s/p lumbar TLIF L4-L5 Onset Date 12/26/22 M3 PT-IP Subjective Start: 12/27/22 11:44 Freq: NEEDED Status: Active Protocol: Document 12/28/22 12:09 TS (Rec: 12/28/22 12:23 TS [id number]) Subjective Physical Therapy Visit Type Type Treatment Note Visit Start Time 11:25 Visit Stop Time 12:04 Total Visit Minutes 39 Number of ROLL OVER LOADER Visits 1 Physical Therapy Visit Comments Patient Comments Pt found resting in bed, reports being drowzy and having more pain today, is agreeable to PT. Therapy Pain Assessment Pain When Pain Assessed During Mobility Pain Present Pain Present Pain Reported M4 PT-IP Mobility and Gait Start: 12/27/22 11:44 Freq: NEEDED Status: Active Protocol: Document 12/28/22 12:09 TS (Rec: 12/28/22 12:23 TS [id number]) PT-Bed Mobility Assessment Rolling Type of Rolling Log Rolling Level of Assist Standby Assistance Supine to Sit Supine to Sit Minimal Assistance,1 Person Assistance,Bedrails Sit to Supine Sit to Supine Contact Guard Assistance, Bedrails Scooting Scooting to Edge of Bed Standby Assistance PT-Transfer Assessment Sit to and From Stand Sit to and from Stand Standby Assistance,Use of Upper Extremities Equipment Transfer Assistive Device Gait Belt,Front Wheeled Walker Comments Mobility Comments BP in supine 149/78 prior to mobility. She recalled 1/3 spinal precautions, could not recall no beding or lifting. Pt performed logroll SBA with handrail assist. Supine to sit Migel for uprighting trunk into sitting position, pt demonstrated good carryover of sequencing. She performed sit to stand SBA with FWW x1 from bed and x1 from window seat. She ambulated in room 2x20', required rest break on bench for ~30 secs. She has a slow step to gait with FWW, denied any dizziness or lightheadedness. Sit to supine into bed CGA for LEs, pt continues to demonstrate good carryover of sequencing. Pt was left back in bed, bed alarm on, requesting shower in afternoon, RN notified. Gait Assessment Gait Gait Assistance Required: Standby Assistance Distance (Feet) 40 Assistive Devices Assistive Device Gait Belt,Front Wheeled Walker Gait Deviations General Gait Pattern Decreased Stride Length, Decreased Feet Clearance, Narrow Based Gait Factors Limiting Gait Function Factors Limiting Gait Function Decreased Activity Tolerance, Decreased Sensation,Decreased Strength,Difficulty Following Directions,Limited Range of Motion,Pain,Poor Balance,Poor Safety Awareness Comments Gait Comments See mobility comments. PT-Balance Assessment Sitting Balance and Reactions Static Sitting Balance Ability Good Dynamic Sitting Balance Ability Good Standing Balance and Reactions Static Standing Balance Ability Good Dynamic Standing Balance Ability Fair Device Used FWW M5 PT-IP Objective Assessments Start: 12/27/22 11:44 Freq: NEEDED Status: Active Protocol: Document 12/27/22 11:44 AB (Rec: 12/27/22 12:40 AB [id number]) Orientation Orientation/Cognition Level of Alertness Alert Orientation Name,Age,Birthday,Month,Date, Year,Day of Week,Place, Situation Language Function Ability No Deficits Noted Safety Awareness Decreased Safety Awareness Comments Possible short term deficits noted, as she has poor recall of education. Gross Range of Motion Upper Extremity ROM Assessment Within Functional Limits Lower Extremity ROM Assessment Within Functional Limits Strength Upper Extremity Strength Assessment Within Functional Limits Lower Extremity Strength Assessment Within Functional Limits M6 PT-IP Treatment Start: 12/27/22 11:44 Freq: NEEDED Status: Active Protocol: Document 12/28/22 12:09 TS (Rec: 12/28/22 12:23 TS [id number]) Physical Therapy Treatment Education Education Provided Precautions,Safety M7 PT-IP Assessment and Plan Start: 12/27/22 11:44 Freq: NEEDED Status: Active Protocol: Document 12/28/22 12:09 TS (Rec: 12/28/22 12:23 TS [id number]) PT Summary Assessment and Plan Potential Rehabilitation Potential Good Summary Impairments Pain,ROM,Strength,Balance, Cognition,Bed Mobility, Transfers,Gait,Activity Tolerance Progress Towards Goals Progressing Toward Goals Assessment Summary Kelli continues to do well with her mobility. She is Migel for supine to sit and SBA for logroll, she demonstrates good carryover of sequencing from previous session. She is SBA with BUE support on FWW x1 from bed and x1 from lower surface of chair. She ambulated ~2x20' with FWW, required rest ~30sec rest break due to fatigue. She has some difficulty recalling spinal precautions, she recalled 1/3 prior to mobility . She did report more pain today and feeling more tired. PT continues to recommend SNF rehab at this time to progress bed mobility, transfers and gait. Goals Bed Mobility Goal Independent Transfer Goal Independent,Front Wheeled Walker,Four Wheeled Walker Gait Goal Independent,Front Wheel Walker ,Four Wheel Walker Gait Distance 500 Other Goals Pt to ambulate 500ft independently with LRAD to show improving tolerance to activity. Pt to recall and maintain 3/3 spinal precautions with functional mobility to show improving safety awareness. Days to Meet Goals 5 Frequency of Treatment Frequency Of Treatment Twice a Day Treatment Plan Physical Therapy Treatment Plan Bed Mobility Training,Transfer Training,Gait Training, Therapeutic Exercise,Balance Retraining,Post Op Education, Discharge Planning,Hot or Cold Pack,Neuromuscular Re-ed, Coordination Retraining,Manual Therapy Other Recommendations and Next Treatment Continue bed mobility, Focus transfers and gait. Assess carryover of spinal precautions. Precautions Lumbar Precautions Log Roll,No Twisting,Limit Bending,Lifting Restriction of 10 lbs,Gait Belt above Incisional Area Weight Bearing Status Weight Bearing Status Weight Bear as Tolerated Recommendations To Nursing Amount of Assist Needed 1 Person Assist Discharge Recommendations PT Discharge Recommendations SNF Rehab Transportation Needs at Discharge Private Vehicle,Wheelchair/ Cabulance
--- NOTE | 2022-12-28 12:50 | CM.DPC ---
DCP Continued: MATERIALS SUPERVISOR reviewed EMR. Per chart, patient stable to dc to SNF today. Per chart, patient's SNF preferences were [facility] and [facility]. From Meseret at [facility], no bed availability until mid to late next week. From Vi at [facility], likely able to accept patient pending [employer] auth. MATERIALS SUPERVISOR provided Vi with patient's SSN. Vi tentatively arranged transport for tomorrow at 0930, pending auth. MATERIALS SUPERVISOR entered room and introduced self and role. Per patient, believed her second choice was [facility]? MATERIALS SUPERVISOR reported that per our records preference was [facility], auth was started, and we have an accepting facility. Patient reported understanding. Patient asked for this MATERIALS SUPERVISOR to coordinate plan with daughter, Mary. MATERIALS SUPERVISOR spoke with daughter Mary. MATERIALS SUPERVISOR answered questions to the best of ability and within area of competency. Dtr in agreement with [facility] discharge plan. Dtr plans to be here Saturday morning for dc and asked to be updated if anything changes. MATERIALS SUPERVISOR updated PA to barrier to d/c. SUSAN Dinero kindly agreed to email available d/c information to [facility] today to assist in d/c tomorrow. Plan: patient likely to discharge to [facility] tomorrow at 0930, pending [employer] auth. Transport via [facility]. CM team will continue to follow closely. TU Hinojosa
--- NOTE | 2022-12-28 13:03 | OT.IPNOTE ---
Pt very tired today and therefore to focus with PT this PM. Nursing aid to assist with sponge bath or shower later pending her energy levels.
--- NOTE | 2022-12-28 13:44 | PT.IPTN ---
Current Diagnoses Spinal stenosis, lumbar region with neurogenic claudication (12/26/22) Arthrodesis status (12/26/22) Surgery Performed Operation Date: 12/26/22 13:15 Actual Procedures p L4-5 TLIF - Salazar Robertson MD Physical Therapy Treatment Note M2 PT-IP Current Condition Start: 12/27/22 11:44 Freq: NEEDED Status: Active Protocol: Document 12/27/22 11:44 AB (Rec: 12/27/22 12:40 AB [id number]) Physical Therapy Current Condition Current Condition Evaluation Date 12/27/22 Treatment Diagnosis s/p lumbar TLIF L4-L5 Onset Date 12/26/22 M3 PT-IP Subjective Start: 12/27/22 11:44 Freq: NEEDED Status: Active Protocol: Document 12/28/22 13:55 TS (Rec: 12/28/22 14:07 TS [id number]) Subjective Physical Therapy Visit Type Type Treatment Note Visit Start Time 13:44 Visit Stop Time 13:54 Total Visit Minutes 10 Number of [facility]ES Visits 2 Physical Therapy Visit Comments Patient Comments Pt found asleep in bed, was agreeable to get up for shower . M4 PT-IP Mobility and Gait Start: 12/27/22 11:44 Freq: NEEDED Status: Active Protocol: Document 12/28/22 13:55 TS (Rec: 12/28/22 14:07 TS [id number]) PT-Bed Mobility Assessment Rolling Type of Rolling Log Rolling Level of Assist Standby Assistance Supine to Sit Supine to Sit Minimal Assistance,1 Person Assistance,Bedrails Scooting Scooting to Edge of Bed Standby Assistance PT-Transfer Assessment Sit to and From Stand Sit to and from Stand Standby Assistance,Use of Upper Extremities Equipment Transfer Assistive Device Gait Belt,Front Wheeled Walker Comments Mobility Comments Pt recalled 2/3 spinal precautions prior to mobility( no lifting). Logroll to L side SBA with handrail assist. Supine to sit Migel with cues for BUE support and handrail assist. Sit to stand with FWW SBA, pt requires cues for feet on floor before standing. She ambulated ~10' to restroom SBA/CGA with FWW with NBOS. Pt was left with nursing staff for shower. Gait Assessment Gait Gait Assistance Required: Standby Assistance,Contact Guard Assist Distance (Feet) 10 Assistive Devices Assistive Device Gait Belt,Front Wheeled Walker Gait Deviations General Gait Pattern Decreased Stride Length, Decreased Feet Clearance, Narrow Based Gait Factors Limiting Gait Function Factors Limiting Gait Function Decreased Activity Tolerance, Decreased Sensation,Decreased Strength,Difficulty Following Directions,Limited Range of Motion,Pain,Poor Balance,Poor Safety Awareness Comments Gait Comments See mobility comments. PT-Balance Assessment Sitting Balance and Reactions Static Sitting Balance Ability Good Dynamic Sitting Balance Ability Good Standing Balance and Reactions Static Standing Balance Ability Good Dynamic Standing Balance Ability Fair Device Used FWW M5 PT-IP Objective Assessments Start: 12/27/22 11:44 Freq: NEEDED Status: Active Protocol: Document 12/27/22 11:44 AB (Rec: 12/27/22 12:40 AB [id number]) Orientation Orientation/Cognition Level of Alertness Alert Orientation Name,Age,Birthday,Month,Date, Year,Day of Week,Place, Situation Language Function Ability No Deficits Noted Safety Awareness Decreased Safety Awareness Comments Possible short term deficits noted, as she has poor recall of education. Gross Range of Motion Upper Extremity ROM Assessment Within Functional Limits Lower Extremity ROM Assessment Within Functional Limits Strength Upper Extremity Strength Assessment Within Functional Limits Lower Extremity Strength Assessment Within Functional Limits M6 PT-IP Treatment Start: 12/27/22 11:44 Freq: NEEDED Status: Active Protocol: Document 12/28/22 13:55 TS (Rec: 12/28/22 14:07 TS [id number]) Physical Therapy Treatment Education Education Provided Precautions,Safety M7 PT-IP Assessment and Plan Start: 12/27/22 11:44 Freq: NEEDED Status: Active Protocol: Document 12/28/22 13:55 TS (Rec: 12/28/22 14:07 TS [id number]) PT Summary Assessment and Plan Potential Rehabilitation Potential Good Summary Impairments Pain,ROM,Strength,Balance, Cognition,Bed Mobility, Transfers,Gait,Activity Tolerance Progress Towards Goals Progressing Toward Goals Assessment Summary Kelli continues to be SBA for logroll and demonstrates good carryover of sequencing. She requires Migel for supine to sit and requires cues for uprighting trunk. She is SBA for sit to stands with use of FWW. She ambulated ~10'SBA/CGA with FWW, had no buckling or LOB. She continues to have some difficulty remembering spinal precautions, she recalled 2/3(no lifting). PT continues to recommend SNF to progress bed mobility, transfers and gait. Goals Bed Mobility Goal Independent Transfer Goal Independent,Front Wheeled Walker,Four Wheeled Walker Gait Goal Independent,Front Wheel Walker ,Four Wheel Walker Gait Distance 500 Other Goals Pt to ambulate 500ft independently with LRAD to show improving tolerance to activity. Pt to recall and maintain 3/3 spinal precautions with functional mobility to show improving safety awareness. Days to Meet Goals 5 Frequency of Treatment Frequency Of Treatment Twice a Day Treatment Plan Physical Therapy Treatment Plan Bed Mobility Training,Transfer Training,Gait Training, Therapeutic Exercise,Balance Retraining,Post Op Education, Discharge Planning,Hot or Cold Pack,Neuromuscular Re-ed, Coordination Retraining,Manual Therapy Other Recommendations and Next Treatment Continue bed mobility, Focus transfers and gait. Assess carryover of spinal precautions. Precautions Lumbar Precautions Log Roll,No Twisting,Limit Bending,Lifting Restriction of 10 lbs,Gait Belt above Incisional Area Weight Bearing Status Weight Bearing Status Weight Bear as Tolerated Recommendations To Nursing Amount of Assist Needed 1 Person Assist Discharge Recommendations PT Discharge Recommendations SNF Rehab Transportation Needs at Discharge Private Vehicle,Wheelchair/ Cabulance
[2022-12-28 16:16] VITALS: BP 140/64; PULSE 74; RESP 20; TEMP 36.1; O2SAT 95
[2022-12-28 20:25] VITALS: BP 138/70; PULSE 76
[2022-12-28] MEDS: lisinopriL 20 MG TABLET PO (20:25)
[2022-12-28] MEDS: ATORVASTATIN 20 MG TABLET PO (20:26)
[2022-12-28] MEDS: SENNOSIDES 8.6 MG TABLET 17.2 MG PO (20:26)
[2022-12-28] MEDS: OXYBUTYNIN 5 MG TABLET PO (20:26)
[2022-12-28 21:39] VITALS: BP 150/73; PULSE 76; RESP 16; TEMP 36; O2SAT 96
[2022-12-29] MEDS: OXYCODONE IR 5 MG TABLET PO ×2 (03:42→07:42)
--- NOTE | 2022-12-29 07:19 | P.PN_ITS ---
Subjective Subjective Date Patient Seen: 12/29/22 Time Patient Seen: 07:19 Interval history: Back pain is [id number]. Patient denies fever or chills. No nausea or vomiting. Exam Vital Signs (past 8 hours): Oxygen Delivery Method Room Air Oxygen Flow Rate 0 Narrative Exam Narrative: 82-year-old female resting comfortably in bed in no apparent distress. Motor functions intact bilateral lower extremities. Sensation grossly intact to light touch bilateral lower extremities. Const General: cooperative and comfortable Nutritional Appearance: average body habitus Orientation: alert Resp Effort & Inspection: normal respiratory effort and able to speak in complete sentences [facility] Medical History Anxiety Lumbar radiculopathy Spinal stenosis Diverticulosis HLD (hyperlipidemia) HTN (hypertension) Gait instability History of CVA (cerebrovascular accident) (~2014) Degenerative joint disease of both hips Surgical History Hx of bilateral cataract extraction History of left-sided carotid endarterectomy (~2014) Hx of appendectomy History of hernia surgery Family History Mother Heart disease Past heart attack Social History household members: none Smoking Status: Never smoker alcohol intake: never Assessment & Plan Post-op Postoperative Procedures: Procedures Operation Date: 12/26/22 13:15 Actual Procedure Side Surgeon p L4-5 TLIF Salazar Robertson MD Postoperative day: 3 Postoperative status narrative: Stable Postoperative plan narrative: Multimodal pain management Weightbearing as tolerated, limit bending, twisting, lifting Follow up in Orthopedics in 2 weeks as scheduled Discharge to long-term facility today. Quality [facility] Deep Vein Thrombosis/Pulmonary Embolism Present on Admission: No
[2022-12-29] MEDS: ACETAMINOPHEN 325 MG TABLET 650 MG PO (07:42)
[2022-12-29] MEDS: polyethylene glycoL 3350 17 GM POWD.PACK PO (07:43)
[2022-12-29] MEDS: CLOPIDOGREL 75 MG TABLET PO (08:01)
[2022-12-29] MEDS: FENOFIBRATE, MICRONIZED 67 MG CAPSULE 134 MG PO (08:01)
[2022-12-29] MEDS: VIT C/E/ZN/COPPR/LUTEIN/ZEAXAN CAPSULE 1 CAP PO (08:01)
[2022-12-29] MEDS: DOCUSATE 100 MG CAPSULE PO (08:01)
[2022-12-29] MEDS: OXYBUTYNIN 5 MG TABLET 10 MG PO (08:02)
[2022-12-29 08:13] VITALS: BP 184/85; PULSE 83; RESP 18; TEMP 37.4; O2SAT 96
--- NOTE | 2022-12-29 08:17 | CM.DPNOTE ---
DC plan is for transition to [facility] SNF rehab. Call to W/E admissions number at [phone] and then [phone] Vi confirms that they have recieved auth and DC plan will move forward with pickup time for 0930 this am. Discussed with patient and daughter at bedside and they agree with plan. Discussed with bedside RN [place] with number to call report, and requested intensive care unit registered nurse to complete DC paper packet for transition. CM team available today unitl [phone] if needed.
[2022-12-29] MEDS: MAGNESIUM HYDROXIDE 30 ML UDC PO (08:37)
== END 2022-12-29 09:41 | DRG 455 ==
PROVIDERS: Admitting Provider Orthopaedic Surgery Orthopaedic Surgery of the Spine; PCP Internal Medicine; Referring Provider Orthopaedic Surgery Orthopaedic Surgery of the Spine; Visit Provider Orthopaedic Surgery Orthopaedic Surgery of the Spine
PROC: 0SG00AJ Fusion of Lumbar Vertebral Joint with Interbody Fusion Device, Posterior Approach, Anterior Column, Open Approach (ICD-10-PCS; principal; 2022-12-26 13:15)
DX: M48.062 Spinal stenosis, lumbar region with neurogenic claudication (principal); M54.16 Radiculopathy, lumbar region; M41.86 Other forms of scoliosis, lumbar region; I10 Essential (primary) hypertension; E78.5 Hyperlipidemia, unspecified; Z86.73 Personal history of transient ischemic attack (TIA), and cerebral infarction without residual deficits
CPT/HCPCS: 72100; 76000; 97116; 97162; 97165; 97530; 97535; C1713; C1831; C9290; J0171; J0330; J0690; J1100; J1170; J1885; J2405; J2704; J3010

== ENCOUNTER → 2024-11-19 10:19 | Outpatient (CLI) | payer MEDICARE, MEDICAID, SELFPAY ==
[2022-12-26 18:00] VITALS: BMI 30.8
[2024-11-19 13:50] LABS: Influenza A - CEPHEID Flu A NEGATIVE (NEGATIVE); Influenza B - CEPHEID Flu B NEGATIVE (NEGATIVE)
[2024-11-19 14:00] LABS: COVID-19 CEPHEID 4-PLEX PCR Negative (Negative)
== END ==
PROVIDERS: PCP Internal Medicine; Visit Provider Chiropractor
DX: J02.9 Acute pharyngitis, unspecified (principal); R09.81 Nasal congestion; R52 Pain, unspecified
CPT/HCPCS: 87637

== ENCOUNTER → 2024-11-26 09:01 | Outpatient (CLI) | payer MEDICARE, SELFPAY ==
[2022-12-26 18:00] VITALS: BMI 30.8
[2024-11-26 10:18] LABS: Add Manual Diff / Slide Review NO; Hematocrit 36.2 % (36-46); Hemoglobin 12.5 g/dL (12.0-16.0); Lymphocytes Absolute Auto 600 /uL (1100-4500); Mean Corpuscular HGB Conc 34.4 % (30-36); Mean Corpuscular Hemoglobin 31.6 PG (26-34); Mean Corpuscular Volume 91.8 fL (80-100); Platelet Count 229 X10^3/uL (150-400)
[2024-11-26 10:58] LABS: Alanine Aminotransferase 25 IU/L (<35); Albumin 4.4 g/dL (3.5-5.0); Albumin Globulin Ratio 1.5 (1.0-2.8); Alkaline Phosphatase 70 U/L (38-126); Blood Urea Nitrogen 22 mg/dL (7-17); Calcium 9.4 mg/dL (8.4-10.2); Carbon Dioxide 27 mmol/L (22-32); Chloride 103 mmol/L (98-107); Cholesterol 166 mg/dL (140-199); Estimated Glomerular Filt Rate > 60 mL/min (>60); Globulin 3.0 g/dL (1.7-4.1); Glucose 101 mg/dL (70-99); HDL Cholesterol 50 mg/dL (40-60); HEMOLYSIS < 15 (0-50); Potassium 4.7 mmol/L (3.4-5.1); Sodium 137 mmol/L (137-145); Total Protein 7.4 g/dL (6.3-8.2); Triglycerides 182 mg/dL (35-150)
[2024-11-26 11:19] LABS: Vitamin D 25 Hydroxy (D3) 42.5 ng/mL (30.0-100.0)
[2024-11-26 11:26] LABS: TSH w/ Reflex to FT4 1.11 uIU/mL (0.47-4.68)
== END ==
PROVIDERS: PCP Family Medicine; Referring Provider Family Medicine; Visit Provider Family Medicine
DX: I10 Essential (primary) hypertension (principal); F41.9 Anxiety disorder, unspecified; Z98.890 Other specified postprocedural states; R26.81 Unsteadiness on feet; Z86.73 Personal history of transient ischemic attack (TIA), and cerebral infarction without residual deficits; E78.5 Hyperlipidemia, unspecified; R53.82 Chronic fatigue, unspecified; R42 Dizziness and giddiness
CPT/HCPCS: 36415; 80053; 80061; 82306; 84443; 85025

== ENCOUNTER → 2024-12-01 10:25 | Outpatient (CLI) | payer MEDICARE, SELFPAY ==
[2022-12-26 18:00] VITALS: BMI 30.8
--- NOTE | 2024-12-01 10:26 | DI.US.S_ITS ---
PROCEDURE: US CAROTID DOPPLER BI INDICATIONS: hx of L endarterectomy; chronic dizziness TECHNIQUE: Color and pulse Doppler interrogation was performed of both carotid systems, with image documentation and velocity measurements. COMPARISON: None. FINDINGS: Stenosis calculations are based on SRU (Society of Radiologists in Ultrasound) criteria. Right side: Common carotid artery peak systolic velocity: 63 cm/sec. Internal carotid artery peak systolic velocity: 104 cm/sec. Internal carotid artery end diastolic velocity: 26 cm/sec. External carotid artery peak systolic velocity: 97 cm/sec. ICA/CCA peak systolic ratio: 1.7 . Dalal scale imaging description: Atherosclerotic plaques Percent internal carotid artery stenosis: Less than 50 percent . Vertebral artery: Flow direction is antegrade. Left side: Common carotid artery peak systolic velocity: 58 cm/sec. Internal carotid artery peak systolic velocity: 51 cm/sec. Internal carotid artery end diastolic velocity: 14 cm/sec. External carotid artery peak systolic velocity: 83 cm/sec. ICA/CCA peak systolic ratio: 0.9 . Dalal scale imaging description: Atherosclerotic plaques Percent internal carotid artery stenosis: Less than 50 percent . Vertebral artery: Flow direction is antegrade. IMPRESSION: 1. In the right carotid artery, there is less than 50 percent stenosis based on peak systolic velocity criteria. 2. In the left carotid artery, there is less than 50 percent stenosis based on peak systolic velocity criteria. 3. Antegrade vertebral arteries. Dictated by: Jesus Vanegas M.D. on 12/01/2024 at 12:20 Approved by: Jesus Vanegas M.D. on 12/01/2024 at 12:22
== END ==
LOC: US 10:26
PROVIDERS: Family Provider Family Medicine; PCP Family Medicine; Referring Provider Family Medicine; Visit Provider Family Medicine
DX: I65.23 Occlusion and stenosis of bilateral carotid arteries (principal); R42 Dizziness and giddiness; R53.82 Chronic fatigue, unspecified; Z86.73 Personal history of transient ischemic attack (TIA), and cerebral infarction without residual deficits; Z98.890 Other specified postprocedural states
CPT/HCPCS: 93880

== ENCOUNTER → 2024-12-03 10:19 | Outpatient (CLI) | payer MEDICARE, SELFPAY ==
[2022-12-26 18:00] VITALS: BMI 30.8
[2024-12-03 11:05] LABS: Appearance Urine UA CLEAR; Bilirubin Urine UA NEGATIVE (NEGATIVE); Color Urine UA YELLOW; Glucose Urine UA NEGATIVE (Negative); Ketones Urine UA NEGATIVE (NEGATIVE); Leukocyte Esterase Urine UA TRACE (NEGATIVE); Nitrite Urine UA NEGATIVE (Negative); Occult Blood Urine UA NEGATIVE (Negative); Protein Urine UA NEGATIVE (Negative); Specific Gravity Urine UA 1.010 (1.000-1.035); Urobilinogen Urine UA 0.2 E.U./dL (0.2)
[2024-12-03 11:06] LABS: pH Urine UA 7.5 (4.5-8.0)
[2024-12-03 11:07] LABS: Culture Indicated Urine Specimen Cultured
== END ==
PROVIDERS: Family Provider Family Medicine; PCP Family Medicine; Referring Provider Family Medicine; Visit Provider Family Medicine
DX: R35.0 Frequency of micturition (principal); R39.9 Unspecified symptoms and signs involving the genitourinary system
CPT/HCPCS: 81001; 87086

== ENCOUNTER → 2025-01-28 10:49 | Outpatient (CLI) | payer MEDICARE, MEDICAID, SELFPAY ==
[2022-12-26 18:00] VITALS: BMI 30.8
--- NOTE | 2025-01-28 10:53 | DI.RAD.S_ITS ---
PROCEDURE: XR LUMBAR SPINE MIN 4V INDICATIONS: history lumbar surgery, lumbar stenosis TECHNIQUE: 6 views of the lumbar spine acquired, including flexion and extension views. COMPARISON: [facility], , XR LUMBAR SPINE 2-3V, 12/26/2022, 17:20. FINDINGS: Post-surgical changes: Changes of L4-5 interbody and posterior instrumented fusion. Bones: 5 nonrib-bearing vertebrae are present. Grade 1 adynamic retrolisthesis of L1 on L2. Reversed S-shaped thoracolumbar scoliosis with multilevel moderate to severe disc space narrowing and multilevel facet arthrosis. No vertebral body compression fractures. No suspicious bony lesions. Soft tissues: Overlying bowel gas pattern is normal. No suspicious soft tissue calcifications. Flexion/extension: There is normal range of motion, without dynamic instability IMPRESSION: Changes of L4-5 interbody and posterior instrumented fusion without acute hardware complication. Reversed S-shaped thoracolumbar scoliosis. Multilevel advanced spondylosis and facet arthrosis. Dictated by: Abelardo Parra M.D. on 01/28/2025 at 14:52 Approved by: Abelardo Parra M.D. on 01/28/2025 at 14:54
== END ==
PROVIDERS: Family Provider Family Medicine; PCP Family Medicine; Referring Provider Physical Medicine & Rehabilitation; Visit Provider Physical Medicine & Rehabilitation
DX: M48.062 Spinal stenosis, lumbar region with neurogenic claudication (principal); M47.816 Spondylosis without myelopathy or radiculopathy, lumbar region; M41.9 Scoliosis, unspecified; Z98.890 Other specified postprocedural states; Z98.1 Arthrodesis status
CPT/HCPCS: 72110